=== PATIENT | male | born 1940 | race Hispanic/Latino ===

== ENCOUNTER 2018-08-15 11:38 | Outpatient (CLI) | payer MEDICARE, BC | END 2018-08-15 11:39 | disposition home or self-care (01) | LOC: RAD 11:38 ==

== ENCOUNTER 2018-09-21 13:02 | Day surgery (SDC) | payer MEDICARE, BC | END 2018-09-21 18:00 | disposition home or self-care (01) | LOC: SDS 13:02 ==